=== PATIENT | male | born 1960 | race Caucasian/White ===

== ENCOUNTER → 2017-12-08 | Outpatient (CLI) | payer OTHER ==
--- NOTE | 2017-12-09 12:51 | XCELERA REPORT ---
[address] [address] Lower Extremity Arterial Evaluation Name: TARIQ WASHINGTON JR Age: 57 yrs Gender: Male : 1960 Patient Status: Outpatient Patient Location: Study Date: 12/08/2017 11:11 AM Procedure: A color flow and duplex scan of the lower extremity arteries was performed bilaterally with velocity and waveform anaylsis. Reason For Study: PVD Ordering Physician: JERMAN DILLON Performed By: Laurie Fagan Measurements and Calculations Right Left RECEIVABLE EXECUTIVE PSV 223.4 cm/sec Prox PFA PSV -40.5 -143.2 cm/sec Prox SFA PSV 107.5 cm/sec Dist SFA PSV -37.7 cm/sec Prox Pop A PSV 27.1 33.0 cm/sec Dist ART PSV 10.6 32.8 cm/sec Dist CONCRETE [employer]EMAN PSV 23.4 29.5 cm/sec Hakeem Pedis PSV 12.0 25.9 cm/sec Right Side Arterial Evaluation Common Femoral artery occluded. Low normal velocity and biphasic waveforms noted in the Deep Femoral and Femoral arteries. Reconstituted monophasic Popliteal to the infrageniculate vessels. Occlusions, as noted. Ankle Brachial index is 0.6. Left Side Arterial Evaluation Biphasic Common Femoral artery with increased velocity. Normal velocity and biphasic waveforms noted in the Deep Femoral artery. Occluded Femoral. Reconstituted monophasic Popliteal and down to the infrageniculate vessels. Occlusions, as noted. Ankle Brachial index is 0.7. Interpretation Summary Severe hemodynamically significant lesions in the bilateral lower extremities, on duplex imaging, at rest. Complex, multilevel disease. : JERMAN DILLON > Jerman Dillon
== END ==
LOC: SP 10:49
PROVIDERS: ATTEND Surgery
DX: I73.9 Peripheral vascular disease, unspecified (principal)
CPT/HCPCS: 93925